=== PATIENT | male | born 1955 | race Caucasian/White ===

== ENCOUNTER → 2020-09-18 | Outpatient (CLI) | payer MEDICAID, MEDICARE ==
--- NOTE | 2020-09-18 08:17 | PFTRPT ---
Height: 68.00 Inches Weight: 187.00 Lbs BSA: 1.99 Diagnosis: R91.8 DATE: 09/18/2020 ORDERED BY: Michael Somers M.D. Pre and post bronchodilator studies have excellent technical quality. Forced vital capacity is reduced. FEV1 is in proportion. Obstructive index is therefore normal. Expiratory limit of the flow-volume loop does suggest at least some degree of restricted impairment. No significant bronchodilator response is identified. Total lung capacity is reduced. Residual volume is in proportion Diffusing capacity although significantly reduced is appropriate for alveolar volume. Hemoglobin is acceptable at 15.9 Airway resistance and conductance are normal. IMPRESSION: Moderate restrictive ventilatory impairment. Please correlate clinically. MTDD
== END ==
LOC: M CARPUL 07:42
PROVIDERS: ATTEND Internal Medicine Pulmonary Disease
DX: R91.8 Other nonspecific abnormal finding of lung field (principal)